=== PATIENT | female | born 1965 | race Caucasian/White ===

== ENCOUNTER 2023-11-16 12:08 | Outpatient (CLI) | payer BC ==
[2023-11-16 12:45] LABS: BASOPHILS % (AUTO) 0.5 % (0-1); EOSINOPHILS # (AUTO) 0.1 X10'3 (0-0.9); EOSINOPHILS % (AUTO) 2.8 % (0-6); HEMATOCRIT 34.2 % (35.0-45.0); HEMOGLOBIN 11.3 g/dl (12.0-16.0); LYMPHOCYTES # (AUTO) 0.8 X10'3 (1.1-4.8); LYMPHOCYTES % (AUTO) 20.6 % (21-51); MEAN CORPUSCULAR HEMOGLOBIN 29.2 PG (27.0-31.0); MEAN CORPUSCULAR HGB CONC 32.9 g/dL (33.0-36.5); MEAN CORPUSCULAR VOLUME 88.7 FL (78-98); MEAN PLATELET VOLUME 7.8 FL (7.4-10.4); MONOCYTES # (AUTO) 0.4 X10'3 (0-0.9); MONOCYTES % (AUTO) 9.4 % (2-12); NEUTROPHILS # (AUTO) 2.5 X10'3 (1.8-7.7); NEUTROPHILS % (AUTO) 66.7 % (42-75); PLATELET COUNT 209 X10'3 (140-440); RED BLOOD COUNT 3.86 X10'6 (4.20-5.60); RED CELL DISTRIBUTION WIDTH 15.7 % (11.5-14.5); WHITE BLOOD COUNT 3.8 X10'3 (4.5-11.0)
[2023-11-16 13:26] LABS: ALANINE AMINOTRANSFERASE 25 U/L (12-78); ALBUMIN 3.6 G/DL (3.4-5.0); ALBUMIN/GLOBULIN RATIO 1.1 (1.1-1.5); ALKALINE PHOSPHATASE 74 IU/L (46-116); ANION GAP 6 (8-16); ASPARTATE AMINO TRANSFERASE 16 U/L (10-37); BILIRUBIN,TOTAL 0.2 MG/DL (0.1-1.0); BLOOD UREA NITROGEN 21 MG/DL (7-18); BUN/CREATININE RATIO 31.3 (10.0-20.0); CALCIUM 8.5 MG/DL (8.5-10.1); CHLORIDE 103 MMOL/L (99-107); CREATININE 0.67 MG/DL (0.40-0.90); FREE T4 (FREE THYROXINE) 0.59 NG/DL (0.73-1.40); GLUCOSE 86 MG/DL (70-104); POTASSIUM 4.3 MMOL/L (3.5-5.1); SODIUM 138 MMOL/L (135-145); TOTAL CARBON DIOXIDE 28.6 MMOL/L (24-32); TOTAL PROTEIN 6.9 G/DL (6.4-8.2); eGFR 90 ML/MIN
== END 2023-11-16 23:59 | disposition home or self-care (01) ==
LOC: LAB 12:08
PROVIDERS: ATTEND Nurse Practitioner Family
DX: G35 Multiple sclerosis (principal); E03.9 Hypothyroidism, unspecified; E55.9 Vitamin D deficiency, unspecified
CPT/HCPCS: 36415; 80053; 82306; 84439; 84443; 85025

== ENCOUNTER 2023-11-28 10:42 | Outpatient (CLI) | payer BC ==
[~2023-11-28 10:42] MED LIST: GADOTERATE MEGLUMINE 7.5 MMOL/15 ML VIAL IV ONE
[2023-11-29] MEDS ORDERED: GADOTERATE MEGLUMINE 7.5 MMOL/15 ML VIAL IV ONE (12:12)
== END 2023-11-28 23:59 | disposition home or self-care (01) ==
LOC: MRI 10:42
PROVIDERS: ATTEND Nurse Practitioner Family
DX: G35 Multiple sclerosis (principal)
CPT/HCPCS: 72157; A9575

== ENCOUNTER 2023-12-07 14:06 | Outpatient (CLI) | payer BC | END 2023-12-07 23:59 | disposition home or self-care (01) | LOC: MRI 14:06 | PROVIDERS: ATTEND Nurse Practitioner Family | DX: M47.812 Spondylosis without myelopathy or radiculopathy, cervical region (principal); M50.33 Other cervical disc degeneration, cervicothoracic region; M48.03 Spinal stenosis, cervicothoracic region; G31.89 Other specified degenerative diseases of nervous system; G35 Multiple sclerosis | CPT/HCPCS: 70553; 72156; A9575 ==

== ENCOUNTER → 2024-08-15 | Outpatient (CLI) | payer BC ==
[2024-08-15 08:14] LABS: BASOPHILS % (AUTO) 0.4 % (0-1); EOSINOPHILS # (AUTO) 0.1 X10'3 (0-0.9); EOSINOPHILS % (AUTO) 2.6 % (0-6); HEMATOCRIT 36.2 % (35.0-45.0); HEMOGLOBIN 12.1 g/dl (12.0-16.0); LYMPHOCYTES # (AUTO) 0.4 X10'3 (1.1-4.8); LYMPHOCYTES % (AUTO) 12.1 % (21-51); MEAN CORPUSCULAR HEMOGLOBIN 28.7 PG (27.0-31.0); MEAN CORPUSCULAR HGB CONC 33.3 g/dL (33.0-36.5); MEAN CORPUSCULAR VOLUME 86.2 FL (78-98); MEAN PLATELET VOLUME 7.7 FL (7.4-10.4); MONOCYTES # (AUTO) 0.3 X10'3 (0-0.9); MONOCYTES % (AUTO) 9.8 % (2-12); NEUTROPHILS # (AUTO) 2.7 X10'3 (1.8-7.7); NEUTROPHILS % (AUTO) 75.1 % (42-75); PLATELET COUNT 192 X10'3 (140-440); RED CELL DISTRIBUTION WIDTH 15.3 % (11.5-14.5); WHITE BLOOD COUNT 3.5 X10'3 (4.5-11.0)
[2024-08-15 08:35] LABS: % IRON SATURATION 25 % (11-46); IRON 80 UG/DL (49-151); TOTAL IRON BINDING CAPACITY 320 UG/DL (259-388)
[2024-08-15 08:37] LABS: ALANINE AMINOTRANSFERASE 24 U/L (12-78); ALBUMIN 3.6 G/DL (3.4-5.0); ALBUMIN/GLOBULIN RATIO 1.1 (1.1-1.5); ALKALINE PHOSPHATASE 77 IU/L (46-116); ANION GAP 5 (8-16); ASPARTATE AMINO TRANSFERASE 19 U/L (10-37); BILIRUBIN,TOTAL 0.3 MG/DL (0.1-1.0); BLOOD UREA NITROGEN 20 MG/DL (7-18); CALCIUM 8.2 MG/DL (8.5-10.1); CHLORIDE 103 MMOL/L (99-107); CREATININE 0.77 MG/DL (0.40-0.90); FERRITIN 10 NG/ML (8-252); GLUCOSE 74 MG/DL (70-104); POTASSIUM 3.9 MMOL/L (3.5-5.1); SODIUM 138 MMOL/L (135-145); TOTAL CARBON DIOXIDE 29.7 MMOL/L (24-32); eGFR 76 ML/MIN
[2024-08-17 08:10] LABS: FOLATE SERUM(FOLIC) 3.1 ng/mL (>3.0)
== END | disposition home or self-care (01) ==
LOC: LAB 07:38
PROVIDERS: ATTEND Nurse Practitioner Family
DX: G35 Multiple sclerosis (principal); D50.9 Iron deficiency anemia, unspecified; G50.0 Trigeminal neuralgia
CPT/HCPCS: 36415; 80053; 82607; 82728; 82746; 83540; 83550; 84425; 85025

== ENCOUNTER 2025-01-08 13:04 | Outpatient (CLI) | payer BC ==
[2025-01-08 13:38] LABS: CREATININE 0.68 MG/DL (0.40-0.90); TOTAL CARBON DIOXIDE 30.5 MMOL/L (24-32); eGFR 88 ML/MIN
== END 2025-01-08 23:59 | disposition home or self-care (01) ==
LOC: LAB 13:04
PROVIDERS: ATTEND Nurse Practitioner Family
DX: G35.A Relapsing-remitting multiple sclerosis (principal)
CPT/HCPCS: 36415; 80053

== ENCOUNTER 2025-02-09 10:35 | Outpatient (CLI) | payer BC ==
--- NOTE | 2025-02-09 14:02 | RADIOLOGY REPORT ---
[facility] EXAMINATION: MR MRI HEAD INDICATION: MULTIPLE SCLEROSIS COMPARISON: MR MRI HEAD on DOS: 12/07/23 TECHNIQUE: Multiplanar, multisequence magnetic resonance imaging of the brain was performed without the use of intravenous contrast. FINDINGS: No evidence of acute or remote infarct. No intracranial hemorrhage. No mass effect. Mild diffuse brain atrophy. There are four foci of deep and subcortical white matter T2/FLAIR hyperintensity within the right frontal lobe with additional focus over the left parietal lobe. Corpus callosum is unremarkable. The brainstem and posterior fossa unremarkable. The ventricles and sulci are normal in size for age. Clear basal cisterns. Flow voids in the major intracranial vessels are maintained. No abnormality of the orbits. Paranasal sinuses and mastoid air cells are clear. No abnormality of the visualized osseous structures and extracranial soft tissues. Suggested 1 cm hemangioma of the right parietal calvarium. 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 IMPRESSION: No interval change. No acute infarct, intracranial hemorrhage, mass effect, or hydrocephalus. Few nonspecific supratentorial foci of T2/FLAIR hyperintensity. Differentials include chronic small-vessel ischemic changes versus changes associated with chronic migrainous state with demyelination thought less likely. No enhancing masses. No active demyelination.
--- NOTE | 2025-02-09 14:18 | RADIOLOGY REPORT ---
CLINICAL INFORMATION: Multiple sclerosis. TECHNIQUE: Multisequence multiplanar MRI images of the cervical spine were obtained prior to and after the uneventful administration of 14 mL Clariscan contrast. COMPARISON: MR MRI C SPINE on DOS: 12/07/23 FINDINGS: Bones: Vertebral body alignment is within normal limits. Vertebral body heights are maintained. Posterior elements are intact. No acute fracture. No focal suspicious marrow signal abnormality. Spinal cord: Spinal cord is normal in signal intensity and morphology. Paraspinal soft tissues: Paraspinal and prevertebral soft tissues are unremarkable. Other: No abnormal postcontrast enhancement. Heterogeneous thyroid gland with enlargement of the right thyroid lobe. There is a small T2 hyperintense, nonenhancing structure in the right palatine tonsil, stable compared to the prior exam, likely retention cyst. Cervical disc levels: C2-C3: Disc desiccation. No significant spinal canal or neural foraminal stenosis. C3-C4: Disc desiccation. No significant spinal canal stenosis. Facet and uncinate hypertrophy with moderate left and [id number] right neural foraminal stenoses, unchanged. C4-C5: Disc desiccation. No significant spinal canal stenosis or neural foraminal stenosis. C5-C6: Disc desiccation. Minimal disc bulge. No significant spinal canal stenosis or neural foraminal stenosis. C6-C7: Disc desiccation. Mild diffuse disc bulge causing mild spinal canal stenosis and partial effacement of the lateral recesses. Facet and uncinate hypertrophy with moderate right and mild left neural foraminal stenoses. C7-T1: Disc desiccation. No significant disc bulge or spinal canal stenosis. No significant neural foraminal stenosis. IMPRESSION: 1. No demyelinating lesions are seen in the spinal cord. 2. Degenerative disc disease and facet/ uncinate disease in the cervical spine with associated spinal canal, subarticular, and neural foraminal stenoses as described above. No significant change compared to the prior exam. 3. No abnormal postcontrast enhancement.
--- NOTE | 2025-02-09 14:20 | RADIOLOGY REPORT ---
EXAM: MR MRI THORACIC SPINE CLINICAL HISTORY: MULTIPLE SCLEROSIS COMPARISON: MR MRI THORACIC SPINE on DOS: 11/28/23 Technique: MRI of the thoracic spine was performed without and without contrast. 14 cc of intravenous contrast was injected. Findings: Vertebral body height is maintained. Vertebral alignment is anatomic. Vertebral marrow signal intensity is unremarkable. The spinal cord has a normal caliber and signal intensity. No abnormal within the spinal canal. Minimal degenerative changes with minimal disc space height loss. No significant spinal canal or foraminal stenosis. No mass is identified within the paraspinal soft tissues. IMPRESSION: No abnormal cord signal changes or enhancement within the thoracic spine. No significant spinal canal foraminal stenosis.
[2025-02-09] MEDS ORDERED: GADOTERATE MEGLUMINE 7.5 MMOL/15 ML VIAL IV ONE (16:17)
== END 2025-02-09 23:59 | disposition home or self-care (01) ==
LOC: MRI 10:35
PROVIDERS: ATTEND Nurse Practitioner Family
DX: M50.123 Cervical disc disorder at C6-C7 level with radiculopathy (principal); M51.34 Other intervertebral disc degeneration, thoracic region; G35.D Multiple sclerosis, unspecified; M47.22 Other spondylosis with radiculopathy, cervical region
CPT/HCPCS: 70553; 72156; 72157; A9575